=== PATIENT | female | born 1970 | race Caucasian/White ===

== ENCOUNTER 2020-06-03 10:40 | Emergency (ER) | payer OTHER, SELFPAY ==
[2020-06-03] VITALS (8 sets, daily range): BP systolic 123–137; BP diastolic 74–91; PULSE 70–104; RESP 18–28; TEMP 37.2–39.3; O2SAT 90–100; BMI 46.5
--- NOTE | 2020-06-03 10:56 | XR_ITS ---
PROCEDURE: XR CHEST PORTABLE Referring Doctor: Alonso New Patient Age:49Y CLINICAL HISTORY: SOB Dyspnea.:covid COMPARISON: CT CT ANGIO CHEST from 06/03/2020 FINDINGS: AP portable upright chest performed but no previous chest films. Fairly lordotic projection on this current AP view Elevation right hemidiaphragm with lower lung volume on right than left Airspace disease right chest most evident right perihilar region and posterior to the right jose as seen on CT as well as extending towards the posterior aspect of the right lower lobe. Also patchy infiltrate seen in the right mid upper lung field on today's plain film. The infiltrates and disease in this patient are much more evident on CT than they are plain film Left chest-suggestion of subtle infiltrate most notable left infrahilar region and along medial left lung base. Also subtle low-density patchy infiltrates at left mid and lower lung friend peripherally c findings compatible with covid pneumonia . Mild cardiomegaly with left ventricular configuration. IMPRESSION: Bilateral patchy low-density infiltrates On plain film infiltrate/atelectasis most pronounced medial right >>left lower lobes. Asymmetric elevation the right hemidiaphragm may reflect atelectasis and volume loss at the right lower lobe, vs prominent liver elevated right hemidiaphragm. Cardiomegaly appearance on this study, likely exaggerated by the AP lordotic projection today Dictated by: Joni Strickland MD 06/03/2020 16:13 Joni Strickland MD in [place] 06/03/2020 16:13
--- NOTE | 2020-06-03 11:01 | HMH.EDGENADL ---
ED Disposition Clinical Impression: Pneumonia due to COVID-19 virus Community acquired pneumonia Qualifiers: Laterality: unspecified laterality Qualified Code(s): J18.9 - Pneumonia, unspecified organism Disposition: Home, Self-Care Condition on Discharge: Good Instructions: DI for COVID-19 (Suspected or Confirmed ) Prescriptions: Doxycycline Hyclate [Doxycycline 100mg Capsule] 100 mg PO Q12 #20 cap Prescription Printed Albuterol Sulfate [Proair Respiclick] 90 mcg IH Q6 #1 [email or web address] Prescription Printed Referrals: Rylan Sunshine [Primary Care Provider] - - Critical Care Critical Care Time: No Attestation: On 06/03/20, the high probability of a clinically significant, sudden or life threatening deterioration of the following system(s) required my full and direct attention, intervention and personal management. The time I documented below is in addition to time spent performing reported procedures but includes the following listed in this critical care notation. Medical Decision Making - Medical Records Medical records reviewed: Yes: I reviewed the patient's medical records. - Hakeem Inquiry Pt receiving controlled substance: No Vital Signs: 06/03/20 10:41 06/03/20 11:24 06/03/20 11:30 Temperature 102.7 F H Temperature Source Oral Pulse Rate [Radial] 104 H 77 Respiratory Rate 28 H 20 Blood Pressure [Right Radial Artery] 133/91 H 137/87 Blood Pressure Mean [Right Radial Artery] 105 103 Blood Pressure Position [Right Radial Artery] Sitting 02 Sat by Pulse Oximetry 93 L 98 98 Oxygen Delivery Method Room Air Nasal Cannula Oxygen Flow Rate (LPM) 3 06/03/20 12:00 06/03/20 13:00 06/03/20 13:53 Temperature 100.6 F H Temperature Source Oral Pulse Rate [Radial] 75 71 70 Respiratory Rate 20 18 Blood Pressure [Right Radial Artery] 132/80 135/81 126/75 Blood Pressure Mean [Right Radial Artery] 97 99 92 Blood Pressure Position [Right Radial Artery] Sitting Sitting 02 Sat by Pulse Oximetry 98 98 100 Oxygen Delivery Method Nasal Cannula Nasal Cannula Oxygen Flow Rate (LPM) 3 3 - Lab Data Lab Results 06/03/20 11:12: WBC 3.9 L, RBC 4.89, Hgb 15.1, Hct 44.6, MCV 91.2, MCH 30.8, MCHC 33.8, RDW 13.9, Plt Count 121 L, MPV 9.1, Neut % (Auto) 70.8, Lymph % (Auto) 23.0, Sabine % (Auto) 5.2, Eos % (Auto) 0.1, Baso % (Auto) 1.0, Neut # (Auto) 2.8, Lymph # (Auto) 0.9, Sabine # (Auto) 0.2, Eos # (Auto) 0.0, Baso # (Auto) 0.0 06/03/20 11:12: Sodium 138, Potassium 4.1, Chloride 101, Carbon Dioxide 29, Anion Gap 12.1, BUN 11, Creatinine 0.70, Estimated Creat Clear 88, Estimated GFR 89, Est GFR ( Amer) 108, Glucose 148 H, Calcium 9.3, Total Bilirubin 0.5, AST 84 H, ALT 84 H, Alkaline Phosphatase 113, Troponin I < 0.01, Total Protein 7.5, Albumin 4.2, Globulin 3.3 H, Albumin/Globulin Ratio 1.3 06/03/20 11:12: Lactate 1.0 06/03/20 11:12: D-Dimer 1.04 H 06/03/20 11:12: Serum HCG, Qual Negative Result diagrams: 06/03/20 11:12 06/03/20 11:12 Orders (Tests/Meds): ED MEDICATIONS Discontinued Medications Generic Name Dose Route Start Last Admin Trade Name Freq PRN Reason Stop Dose Admin Sodium Chloride 1,000 mls @ 999 mls/hr 06/03/20 11:00 Sod Chlor 0.9% 1000ml Bag IV 06/03/20 12:00 .Q1H1M GLENNY Sodium Chloride 1,000 mls @ 999 mls/hr 06/03/20 11:00 06/03/20 11:20 Sod Chlor 0.9% 1000ml Bag IV 06/03/20 12:00 999 mls/hr .Q1H1M GLENNY Administration Iopamidol 70 ml 06/03/20 12:38 06/03/20 12:40 Iopamidol-370 (76%);100ml Bottle IV 06/03/20 12:39 70 ml ONCE ONE Administration Ketorolac Tromethamine 30 mg 06/03/20 10:56 06/03/20 11:20 Ketorolac 30mg/Ml Vial IV 06/03/20 10:57 30 mg ONCE ONE Administration Ondansetron HCl 4 mg 06/03/20 10:58 06/03/20 11:20 Ondansetron 4mg/2ml Vial IV 06/03/20 10:59 4 mg ONCE ONE Administration Ondansetron HCl 4 mg 06/03/20 12:48 06/03/20 12:50 Ondansetron 4mg/2ml Vial IV 06/03/20 12:49 4 mg ONCE ON
--- NOTE | 2020-06-03 11:18 | ECG_ITS ---
APPROVED REPORT Exam: Resting ECG HR:82 bpm ECG Measurements Heart Rate 82 AXES TX 156 P 27 QRSd 96 QRS 18 QT 366 T 56 QTc 427 Conclusion Normal sinus rhythm Normal ECG Electronically signed by : Frankie Wiley, 06/04/2020 19:39:05
[2020-06-03 11:32] LABS: Eosinophils % 0.1 % (0.1-12.0); Hematocrit 44.6 % (37.0-47.0); Hemoglobin 15.1 g/dL (12.2-16.2); Lymphocytes # 0.9 K/mm3 (0.7-4.5); Mean Corpuscular HGB Conc 33.8 g/dL (31.8-35.4); Mean Corpuscular Hemoglobin 30.8 pg (27.0-31.2); Mean Corpuscular Volume 91.2 fl (81-99); Mean Platelet Volume 9.1 fl (7.4-10.4); Monocytes # 0.2 K/mm3 (0.1-1.0); Monocytes % 5.2 % (1.7-9.3); Neutrophils # 2.8 K/mm3 (1.8-7.8); Neutrophils % 70.8 % (37.0-80.0); Platelet Count 121 K/mm3 (142-424); Red Blood Count 4.89 M/mm3 (4.20-5.40); Red Cell Distribution Width 13.9 % (11.5-17.5); White Blood Count 3.9 K/mm3 (4.8-10.8)
[2020-06-03 11:35] LABS: Chloride 101 mmol/L (98-107); Potassium 4.1 mmoL/L (3.5-5.1); Sodium 138 mmol/L (136-145)
[2020-06-03 11:37] LABS: Blood Urea Nitrogen 11 mg/dl (7-17); Creatinine Clearance Estimated 88 mL/min (50-200); Estimated Glomerular Filt Rate 89 ml/min (>60); GFR (African American) 108 ML/MIN (>60)
[2020-06-03 11:38] LABS: Alanine Aminotransferase 84 U/L (12-78); Albumin Level 4.2 g/dl (3.5-5.0); Albumin/Globulin Ratio 1.3 (1.1-1.8); Alkaline Phosphatase 113 U/L (38-126); Anion Gap 12.1 mEq/L (5-15); Aspartate Amino Transferase 84 U/L (14-36); Bilirubin,Total 0.5 mg/dl (0.2-1.3); Calcium 9.3 mg/dl (8.4-10.2); Carbon Dioxide 29 mmol/L (22.0-30.0); Globulin 3.3 g/dL (1.3-3.2); Glucose 148 mg/dl (74-100); HCG Qualitative, Serum Negative (Negative); Total Protein,Serum 7.5 g/dl (6.3-8.2)
[2020-06-03 11:43] LABS: D-Dimer 1.04 ug/mL (0.0-0.5)
--- NOTE | 2020-06-03 11:50 | CT_ITS ---
PROCEDURE: CT ANGIO CHEST Referring Doctor: Alonso Nwe Patient Age:49Y CLINCIAL INDICATION: ELEVATED D-DIMER short of breath with fever since last Thursday Fever short of breath. The the covid positive COMPARISON: Only chest film from today no other studies prior to today available TECHNIQUE: IV Contrast: Bolus injection 70ML Isovue 370 followed by 40 mL normal saline Thin-section axial images obtained with thick volume slab mipp sagittal and coronal reformats performed by technologist on workstation the. All CT scans at the facility use one or more dose reduction, viz: automated exposure control, ma/kV adjustment per patient size (including targeted exams where dose is matched to indication, i.e. head), or iterative reconstruction technique. FINDINGS: PULMONARY ARTERIES: No good evidence of pulmonary embolism Would note scanning slightly late versus contrast injection yielding less than optimal enhancement of pulmonary arteries. However the studies adequately diagnostic with no evidence of pulmonary embolism. The lower lobe pulmonary arteries are not as well enhanced and seen but overall appears satisfactory. Main pulmonary artery with fairly good enhancement appears normal. The upper lobe pulmonary arteries appears satisfactory. AORTA: More optimal enhancement is seen at the aorta. No acute finding here. No thoracic aortic aneurysm or dissection evident LUNGS: Numerous patchy infiltrates throughout the lung friend bilaterally. Findings do would be compatible with covid pneumonia The majority of these are are relatively small focal patchy areas of infiltrate.. However in the right lung I would note a more prominent diffuse confluent and dense area of infiltrate is seen along the entire posterior aspect of the right lower lobe.. There is also perihilar infiltrate on right In the left lung the infiltrates are more scattered and patchy of with no one large single dominant area on left left lung Somewhat low lung volumes with elevation right hemidiaphragm. Also noted PLEURAL SPACES: No significant effusion. No evidence of pneumothorax. HEART: Unremarkable. Normal heart size. No significant pericardial effusion. MEDIASTINAL AND HILAR STRUCTURES: Scant scattered small to moderate size nodes at the mediastinum. A most likely reactive nodes no prominent adenopathy. A generous azygos vein and node which reflect the same. No dominant adenopathy BONY STRUCTURES: No acute bony abnormalities apparent. LYMPH NODES: No enlarged lymph nodes evident. UPPER ABDOMEN: Hepatic steatosis. Diffuse fatty changes the liver with likely mild hepatomegaly. IMPRESSION: 1..Bilateral pneumonia, right greater than left.. Pattern most compatible with covid pneumonia . Multiple, innumerable small patchy infiltrates throughout both lungs. . But also at right chest there is a more dominant confluent area of denser peripheral infiltrate, seen diffusely along the posterior aspect of the right lower lobe (this latter feature is best appreciated on coronal image 71, 70) 2.. No pulmonary embolism evident . Adequate visualization of pulmonary arteries 3.. Hepatic steatosis with apparent suggestion mild hepatomegaly at partially imaged liver . Elevation right hemidiaphragm may be associated Dictated by: Joni Strickland MD 06/03/2020 14:18 Joni Strickland MD in [place] 06/03/2020 14:18
[2020-06-03 11:59] LABS: Troponin I < 0.01 ng/ml (0.00-0.034)
== END 2020-06-03 15:00 | disposition home or self-care (01) ==
PROVIDERS: Emergency Provider Emergency Medicine; PCP Internal Medicine
DX: J12.82 Pneumonia due to coronavirus disease 2019 (principal)
CPT/HCPCS: 71045; 71275; 80053; 83605; 84484; 84703; 85025; 85378; 93005; 96365; 96375; 99284; J2405; Q9967

== ENCOUNTER → 2021-06-06 17:26 | Outpatient (CLI) | payer OTHER, SELFPAY | PROVIDERS: Visit Provider Nurse Practitioner | DX: U07.1 COVID-19 (principal) | CPT/HCPCS: C9803; U0003; U0005 ==

== ENCOUNTER 2023-07-27 16:29 | Emergency (ER) | payer OTHER, SELFPAY ==
[2023-07-27 16:45] VITALS: BP 159/87; PULSE 94; RESP 22; TEMP 37.8; O2SAT 96; BMI 51.0
--- NOTE | 2023-07-27 17:06 | ED_ITS ---
Discharge Plan Prescriptions Prescriptions: No Action doxycycline hyclate 100 MG capsule 100 mg PO Q12 Qty: 20 0RF albuterol sulfate 90 MCG aerosol powdr breath activated 90 mcg IH Q6 Qty: 1 0RF Referrals Follow up/Referrals: Rylan Sunshine [Primary Care Provider] - See instructions Activity Restrictions/Add. Instructions Additional Instructions/Restrictions: *Monitor Temp, Over the counter Motrin or Tylenol as directed/as needed Tylenol every 4 hours and Motrin every 6 hours (as long as your family doctor has told you that you can take it) for fever or pain. and straight to ER if unable to lower temp less than 101.0 after medication given *Warm salt water gargles may help to soothe the throat *Throat Lozenges? *Warm fluids like tea with honey may help to soothe the throat? *Sleep elevated *Humidifier/Vaporizer Follow up IMMEDIATELY for new or worsening symptoms or no Noticeable improvement over the next 48-72 hours. 911 for difficulty breathing or swallowing You were tested for today for Upper Respiratory Panel with COVID19 your test result should be back in the next 24hours, you may check your results on the [facility] Clinical Impressions Clinical Impression: Viral syndrome Instructions Patient Instructions: DI for Fever (Symptom) -- Adult, Sore Throat, DI for Nasal Congestion Discharge ED Provider: Nikole Lockett [facility] [place] General Stated complaint: Fever,cough,body aches Mode of Arrival: Ambulatory Source of Information: Patient Limitations: No Limitations Time Seen by Provider: 07/27/23 17:06 Description of Symptoms (Recalled from Triage Doc. by RN): PATIENT C/O COUGH, BODY ACHES, SCRATCHY THROAT, AND CHILLS THAT STARTED LAST NIGHT. RECENTLY EXPOSED TO FLU HEENT Symptoms (Recalled from RN notes): Yes Resp Symptoms (Recalled from RN notes): Yes Skin Symptoms (Recalled from RN notes): No MS Symptoms (Recalled from RN notes): No Functional Status (Recalled from RN notes): WNL History of Present Illness Provider Complaint: Patient states that mother had flu last week and she helped to take care of her and last night she started with scratchy throat, body aches, chills, fever, and cough States that she was worried that she may have the flu so she came in to get checked Related Data Previous Rx's Medication Instructions Recorded albuterol sulfate 90 mcg/actuation 90 mcg IH Q6 ##1 06/03/20 breath activated powder inhaler doxycycline hyclate 100 mg capsule 100 mg PO Q12 #20 caps 06/03/20 Allergies Allergy/AdvReac Type Severity Reaction Status Date / Time morphine Allergy Verified 06/03/20 10:55 [From Michael (PF)] Worker's Comp Is this a Worker's Comp case?: [facility] Dis[facility]: The information contained in this section may have been updated after the patient was seen, as this information can be updated by other users. Medical History (Updated 07/27/23 @ 17:16 by Nikole Lockett APRN) Migraine Hyperlipidemia Hypertension Surgical History (Updated 07/27/23 @ 16:57 by Nadia Romano RN) History of knee surgery History of section Social History Smoking Status: Unknown if ever smoked alcohol intake: never current occupational status: employed Travel in the last 8 weeks: None ROS Obtained: Yes All systems reviewed & no additional complaints except as documented and Yes Systems reviewed as appropriate & no additional complaints except as documented Constitutional Constitutional: Reports system reviewed and no additional complaints, except as documented, Reports as per HPI, Reports body ache, Reports chills, Reports fever(s) and Reports headache(s) ENT Ears, Nose, Mouth, and Throat: Reports system reviewed and no additional complaints, except as documented, Reports as per HPI, Reports headache(s), Reports nasal congestion and Reports sore throat Cardiovascular Cardiovascular: Reports system reviewed and no additional complaints, except as documented and Reports as per HPI Respiratory Respiratory: Reports system reviewed and no additional complaints, except as documented, Reports as per HPI and Reports cough Gastrointestinal Gastrointestingal: Reports system reviewed and no additional complaints, except as documented and as per HPI Neurologic Neurologic: Reports headache(s) Physical Exam General General appearance: alert and in no apparent distress ENT ENT exam: Present mucous membranes moist Expanded ENT Exam Nose exam: Absent sinus tenderness Throat exam: Present other (mild pharyngeal erythema noted ) Respiratory Respiratory exam: Present normal lung sounds bilaterally; Absent respiratory distress or wheezes Cardiovascular Cardiovascular exam: Present regular rate, normal rhythm and normal heart sounds Neurological Exam Neurological exam: Present alert, oriented X3 and normal gait Medical Decision Making Hakeem Inquiry Pt receiving controlled substance: No Hakeem was queried for this patient: No Vital Signs: 07/27/23 16:45 Temperature 100.0 F H Temperature Source Oral Pulse Rate [Left Brachial] 94 H Respiratory Rate 22 Blood Pressure [Left Arm] 159/87 H Blood Pressure Mean [Left Arm] 111 Blood Pressure Source [Left Arm] Automatic Cuff Blood Pressure Position [Left Arm] Sitting 02 Sat by Pulse Oximetry 96 Oxygen Delivery Method Room Air Lab Data Lab results reviewed: Yes I reviewed the patient's lab results.
[2023-07-27 17:10] LABS: UTC Influenza A Antigen Negative (Negative); UTC Influenza B Antigen Negative (Negative)
[2023-07-27 17:17] VITALS: BP 159/87; PULSE 94; RESP 22; TEMP 37.8; O2SAT 96
[2023-07-27 18:04] LABS: Adenovirus,PCR Not Detected (NotDetected); Coronavirus 19, PCR Not Detected (NotDetected); Coronavirus 229E Not Detected (NotDetected); Coronavirus NL63 Not Detected (NotDetected); Coronavirus OC43 Not Detected (NotDetected); Coronovirus HKU1,PCR Not Detected (NotDetected); Human Metapneumovirus Not Detected (NotDetected); Influenza A, PCR Not Detected (NotDetected); Influenza AH1, 2009 Not Detected (NotDetected); Influenza AH1, PCR Not Detected (NotDetected); Influenza AH3,PCR Not Detected (NotDetected); Influenza B, PCR Not Detected (NotDetected); Parainfluenza 1, PCR Not Detected (NotDetected); Parainfluenza 2, PCR Not Detected (NotDetected); Parainfluenza 3, PCR Not Detected (NotDetected); Parainfluenza 4, PCR Not Detected (NotDetected); Respiratory Syncytial Virus Not Detected (NotDetected); Rhinovirus/Enterovirus Not Detected (NotDetected)
== END 2023-07-27 17:26 | disposition home or self-care (01) ==
LOC: UTC 16:38
PROVIDERS: Emergency Provider Nurse Practitioner; PCP Internal Medicine
DX: R50.9 Fever, unspecified (principal); R05.9 Cough, unspecified; B34.9 Viral infection, unspecified; E78.5 Hyperlipidemia, unspecified; I10 Essential (primary) hypertension
CPT/HCPCS: 87632; 87635; 87804; 99204; 99212; G0463